=== PATIENT | male | born 1995 | race Caucasian/White ===

== ENCOUNTER → 2022-05-17 10:43 | Outpatient (CLI) | payer OTHER, SELFPAY ==
--- NOTE | ~2022-05-17 | XR_ITS ---
EXAMINATION: XR knee LT min 4V DATE: 05/17/2022 11:10 INDICATION: Left knee pain TECHNIQUE: Four views of the left knee were obtained. COMPARISON: None. FINDINGS: Alignment is normal. No fracture or osteochondral lesion. Joint spaces are normal with no e rosions. There is a small knee joint effusion. Soft tissues are unremarkable. IMPRESSION: 1. Small knee joint effusion without acute osseous abnormality. Reviewed, dictated and finalized at location L. 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
== END ==
PROVIDERS: PCP Family Medicine; Visit Provider Family Medicine
DX: M25.462 Effusion, left knee (principal); M25.562 Pain in left knee
CPT/HCPCS: 73564

== ENCOUNTER 2022-05-23 13:08 | Outpatient (RCR) | payer OTHER, SELFPAY ==
--- NOTE | 2022-05-23 14:43 | PTOPEVAL1 ---
Assessment and note entered by Mayelin Thompson, PT, DPT Evaluation Information Assessment Status Evaluation Diagnosis L knee Onset 3 weeks Subjective Information Pt states a couple of weeks ago when exercising his knee gave out. Now pt states just walking does not usually bother his knee to much. He states with increased knee flexion he gets a pain down the back of his knee, and when sitting for too long then going to stand he initial has to limp because of the pain and it feels like his leg does not want to move. He states d/t pain he struggles to bring his L leg up to put his shoes on. He reports pain with active motions as well as max extension , but a decrease in pain once in the new position. 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 He rates 0/10 pain at rest, and 4/10 at the worst. Reported Pain Level Pain Score 0: Self Report Assessment PT Clinical Summary Kenan Ureña presents to therapy today with a diagnosis of L knee pain. Today he reports very specific but very sporadic things that increase his pain. He demonstrates L knee ROM that is decreased compared to the RLE but still functional for his. During functional movement assessments he demonstrates increased medial and lateral instability bilaterally. He has 5/5 muscle strength with resisted flexion and extension. He was instructed today in a HEP to address knee instability and single leg strength. D/t not having any functional limitations at this time, it was recommended that he continue with his HEP and follow up with the clinic in about a month, or sooner if needed, to monitor his pain and progress . Will discharge if he is doing fine, will progress HEP and starts treatments if his pain increases. Plan of Care Interventions Neuro Re-education,Patient/Caregiver Educati, Therapeutic Activities,Therapeutic Exercise PT Services Indicated Yes Treatment Frequency and follow up in one month if needed Duration These treatments will address the objective and functional deficits as defined above. The patient will be advanced safely and appropriately in order for the patient to progress towards his/her prior level of function. Additional exercises will be introduced and as well as a comprehensive home exercise program upon discharge, if needed, ?to ensure carryover of functional gains achieved in the clinic. This treatment plan has been reviewed and agreement upon by the patient.
--- NOTE | 2022-08-12 08:35 | PTOPDC ---
Assessment and note entered by Mayelin Thompson, PT, DPT Evaluation Information Assessment Status Discharge - Pt Not Present Diagnosis L knee Onset 3 weeks Subjective Information Kenan was evaluated on 05/23/22 and was having very mild pain at the time. He was given an HEP and told to follow up with the clinic in a month if his pain did not get better. He has not called the clinic to follow at this point, he will be discharged from skilled therapy services at this time.
== END 2022-08-12 10:18 | disposition home or self-care (01) ==
LOC: ANHGOSHPT 13:08
PROVIDERS: PCP Family Medicine; Visit Provider Family Medicine
DX: M25.562 Pain in left knee (principal)
CPT/HCPCS: 97112; 97161; 97530

== ENCOUNTER 2022-05-26 09:49 | Outpatient (CLI) | payer OTHER, SELFPAY ==
[2022-05-26 18:57] LABS: Alanine Aminotransferase 46 U/L (6-50); Albumin Level 4.3 g/dL (3.5-5.1); Alkaline Phosphatase 64 U/L (38-126); Anion Gap 6 mmol/L (8-16); Aspartate Amino Transferase 40 U/L (17-59); Bilirubin,Total 0.6 mg/dL (0.2-1.3); Blood Urea Nitrogen 14 mg/dL (9-20); Carbon Dioxide 29 mmol/L (22-30); Chloride 101 mmol/L (98-107); Cholesterol 192 mg/dL (0-200); Estimated Glomerular Filt Rate > 60; Glucose 88 mg/dL (65-110); HDL Direct 39 mg/dL; Potassium 4.6 mmol/L (3.4-5.0); Sodium 136 mmol/L (137-145); Triglycerides 82 mg/dL (<150)
[2022-05-26 19:08] LABS: LDL Cholesterol Direct 107 mg/dL
[2022-05-26 19:43] LABS: Vitamin D 25 Hydroxy 18.7 ng/mL
[2022-05-26 20:05] LABS: Basophils Percent Auto 0.6 % (0.2-1.2); Eosinophils Absolute Auto 0.1 K/mm3 (0-0.3); Hematocrit 48.1 % (42.0-52.0); Hemoglobin 15.5 g/dL (14.0-18.0); Immature Granulocyte Absolute 0.02 K/mm3 (0.00-0.031); Immature Granulocyte Percent A 0.3 % (0-0.5); Lymphocytes Percent Auto 34.5 % (18.3-44.2); Mean Corpuscular HGB Conc 32.2 g/dl (32-36); Mean Corpuscular Hemoglobin 26.9 pg (26-34); Mean Corpuscular Volume 83.4 fl (80-100); Mean Platelet Volume 11.8 fl (7.4-10.4); Monocytes Absolute Auto 0.4 K/mm3 (0.1-0.6); Monocytes Percent Auto 6.1 % (2.6-8.5); Neutrophils Absolute Auto 3.8 K/mm3 (1.3-6.7); Neutrophils Percent Auto 57.5 % (45.5-73.1); Platelet Count Result 269 k/mm3 (150-375); Red Blood Count 5.77 M/mm3 (4.6-6.20); White Blood Count 6.7 K/mm3 (4.5-10.0)
== END 2022-05-26 09:50 | disposition home or self-care (01) ==
LOC: ANHGOSHLAB 09:50
PROVIDERS: PCP Family Medicine; Visit Provider Family Medicine
DX: Z00.00 Encounter for general adult medical examination without abnormal findings (principal); Z13.220 Encounter for screening for lipoid disorders; E66.01 Morbid (severe) obesity due to excess calories; Z13.29 Encounter for screening for other suspected endocrine disorder; E55.9 Vitamin D deficiency, unspecified
CPT/HCPCS: 36415; 80053; 80061; 82306; 84443; 85025

== ENCOUNTER 2023-04-10 13:28 | Inpatient (IN) | payer OTHER, SELFPAY ==
[2023-04-10] VITALS (10 sets, daily range): BP systolic 111–136; BP diastolic 42–79; PULSE 103–110; RESP 16–19; TEMP 37.3–37.8; O2SAT 96–100; BMI 42.2
--- NOTE | ~2023-04-10 | CT_ITS ---
EXAMINATION: CT pelvis w con DATE: 04/10/2023 15:33 INDICATION: Perineal abscess with scrotal swelling TECHNIQUE: Computed tomography (CT) of the pelvis was performed with 100 cc Omnipaque 350 intravenous contrast. The dose-length product was 1503.00 mGy-cm. COMPARISON: None FINDINGS: There is a small right perineal abscess measuring 3.8 x 4 x 1.5 cm containing gas and fluid . There is moderate surrounding phlegmonous change with scrotal wall edema and fluid. There is a poss ible small second abscess located inferiorly adjacent to the scrotum containing gas and fluid. Nonobstructive bowel pattern. No significant vascular abnormality. There is mild lymph node enlargeme nt in the inguinal region bilaterally, likely reactive. Bladder is unremarkable. No acute osseous abn ormality. IMPRESSION: 1. Multiple focal areas of loculated fluid and gas in the perineum, consistent with abscess, largest measuring 4 cm. Moderate surrounding phlegmonous change with fluid and edema extending to the scrotal wall. Reviewed, dictated and finalized at location A. 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 Multiple focal areas of loculated fluid and gas in the perineum, consistent with abscess, largest measuring 4 cm. Moderate surrounding phlegmonous change w ith fluid and edema extending to the scrotal wall.
[2023-04-10 15:00] LABS: Basophils Percent Auto 0.2 % (0.2-1.2); Eosinophils Percent Auto 0.1 % (0-4.4); Hematocrit 45.4 % (42.0-52.0); Hemoglobin 14.7 g/dL (14.0-18.0); Immature Granulocyte Absolute 0.09 K/mm3 (0.00-0.031); Immature Granulocyte Percent A 0.5 % (0-0.5); Lymphocytes Absolute Auto 1.23 K/mm3 (0.9-3.2); Lymphocytes Percent Auto 7.5 % (18.3-44.2); Mean Corpuscular HGB Conc 32.4 g/dl (32-36); Mean Corpuscular Hemoglobin 27.3 pg (26-34); Mean Corpuscular Volume 84.4 fl (80-100); Mean Platelet Volume 11.5 fl (7.4-10.4); Monocytes Percent Auto 5.9 % (2.6-8.5); Neutrophils Absolute Auto 14.2 K/mm3 (1.3-6.7); Neutrophils Percent Auto 85.8 % (45.5-73.1); Platelet Count Result 216 k/mm3 (150-375); Red Blood Count 5.38 M/mm3 (4.6-6.20); Red Cell Distribution Width 13.9 % (11.5-14.5); White Blood Count 16.5 K/mm3 (4.5-10.0)
[2023-04-10 15:14] LABS: Alanine Aminotransferase 24 U/L (6-50); Alkaline Phosphatase 69 U/L (38-126); Anion Gap 9 mmol/L (8-16); Aspartate Amino Transferase 22 U/L (17-59); Bilirubin,Total 0.8 mg/dL (0.2-1.3); Blood Urea Nitrogen 15 mg/dL (9-20); Calcium 9.4 mg/dL (8.4-10.2); Carbon Dioxide 24 mmol/L (22-30); Chloride 102 mmol/L (98-107); Estimated CRCL calculation 165 ml/min; Estimated Glomerular Filt Rate > 60; Glucose 111 mg/dL (65-110); Potassium 3.8 mmol/L (3.4-5.0); Sodium 135 mmol/L (137-145)
--- NOTE | 2023-04-10 15:42 | ED.GENADULT ---
HPI - General Adult General Chief complaint: Skin/Abscess/Foreign Body Stated complaint: boil on taint/scrotal swelling Time Seen by Provider: 04/10/23 14:32 History of Present Illness HPI narrative: Patient is a 28-year-old male who presents ER with concern for abscess of the perineum. Patient reports it began developing 2 days ago. He squeezed it yesterday and got some fluid out. He continues to have some drainage today. His right testicle/scrotum became swollen today any as some streaking into his inguinal crease. Subjective fevers and chills. No urinary symptoms. No abdominal pain. Diarrhea or vomiting. No history of diabetes. Related Data Home Medications Medication Instructions Recorded Confirmed No Home Medications 04/10/23 04/10/23 Allergies Allergy/AdvReac Type Severity Reaction Status Date / Time No Known Allergies Allergy Verified 04/10/23 19:41 Review of Systems Review of Systems: All systems reviewed & are unremarkable except as noted in HPI and below Constitutional: Constitutional: Reports chills, Denies fatigue and Reports fever(s) Cardiovascular: Cardiovascular: Reports no additional cardiovascular complaints Respiratory: Respiratory: Reports no additional respiratory complaints Gastrointestinal: Gastrointestinal: Reports no additional gastrointestinal complaints Genitourinary: Genitourinary: Denies dysuria, Denies penile discharge and Denies testicular pain Comments: Scrotal swelling Musculoskeletal: Musculoskeletal: Reports no additional musculoskeletal complaints Integumentary/Breasts: Skin/Breast: Denies pruritus, Reports erythema and Denies rash Comments: perineal abscess PMFSH Past Medical History Medical History Obesity, Class III, BMI 40-49.9 (morbid obesity) Surgical History Surgical History History of repair of pyloric stenosis (~03/1995) Family History Family History (Updated 04/10/23 @ 19:45 by Marco Martell RN) Grandparent Lung cancer Social History Social History Smoking status: Never smoker Alcohol intake: never Substance use: never Substance use type: does not use Do You Feel Safe in your Home?: Yes Lack of Transportation: No Lack of Food: Never True Current Housing: I Have Housing Concerned About Future Housing: No Difficulty Paying Gas/Electric Bills: No Difficulty Paying for Meds: No Currently Unemployed: No Education: High School Diploma/GED Difficulty w/ Childcare or Family Care: No Occupation/Education: occupation Spiritual care concerns: No Exam Narrative: GENERAL: Well-appearing, obese, and in no acute distress. HEAD: Normocephalic, atraumatic. ENT: Mucous membranes moist. CHEST: Clear to auscultation. No respiratory distress. HEART: Regular rate and rhythm. Normal peripheral pulses. ABDOMEN: Soft, nontender, nondistended. : Scrotal exam with abscess for the scrotum meets the perineum. Purulence expressed. There is swelling of the scrotum and erythema with lymphangitic streaking going into the inguinal crease. no overt testicular tenderness. no crepitus. EXTREMITIES: Normal range of motion. No edema. SKIN: Warm, dry, no rash. See exam. NEURO: Alert and oriented x3. PSYCH: Normal mood and affect. Course Course Emergency Course: Discussed case with Dr. Hayes including labs and imaging, he would like the patient started on Zosyn/ clindamycin/ metronidazole and admitted to the hospitalist service. After discussing the case with the hospitalist service they feel patient would be best served on the surgical service as there are no medical issues for them to manage. They would be happy to consult on any medical issues that may jerod. After contacting general surgery again they will take the patient primarily under
[2023-04-10] MEDS: PIPERACILLN/TAZ 3.375GM/NS50ML 3.375 GM/50 ML BAG IVPB (16:37)
[2023-04-10] MEDS: CLINDAMYCIN 900 MG/D5W 50 ML 900 MG/50 ML PIGGYBACK 50 MG IVPB (17:25)
[2023-04-10] MEDS: MORPHINE SULFATE (*CRX) 4 MG/ML INJ IV PUSH (18:25)
[2023-04-10] MEDS: ONDANSETRON INJ 4 MG/2 ML VIAL IV PUSH (18:25)
[2023-04-10] MEDS: metroNIDAZOLE 500 MG/ISO 100ML 500 MG/100 ML BAG 100 MG IVPB (18:30)
--- NOTE | 2023-04-10 19:30 | ADMGEN ---
This patient, Kenan Welch, was admitted to Medical Room 341-01. Patient/family oriented to hospital policies and general routines including ID bracelet, bed and alarms, visiting hours, pain management, procedures, bathroom and other care routines, personal items, smoking policy, room service/diet, and visiting hours. Information on how to activate the Rapid Response Team has been discussed. Patient/Family are encouraged to report perceived risks to care and to ask questions if they do not understand what they are told or what they should do.
--- NOTE | 2023-04-10 21:57 | PM.IMHP ---
H&P: HPI History of Present Illness Date/Time: 04/10/23 21:57 Chief Complaint: Perineal abscess Narrative: patient is a 28-year-old white male who is not a diabetic presented to the emergency room today with complaints worsening redness swelling and pain in the perineal region for the past 3 to 4 days. Over the past 24hours has gotten a lot worse and he started having some spontaneous drainage from the area. No fever in the emergency room. White blood cell count was elevated at 16,500. CT scan of the pelvis was performed showing complex fluid collection in the perineal area with swelling and phlegmonous changes extending up into the right base of the scrotum and right groin region. The largest fluid collection is about 4cm and it is below the levator muscles. He has no problems urinating. Review of Systems Review of Systems: The remainder of the review of systems to include constitutional, HEENT, cardiovascular, respiratory, GI, , integumentary, musculoskeletal, endocrine, immunologic, hematologic, psychiatric, and neurologic are all negative except for which is mentioned above in the HPI. [facility] Past Medical History Medical History Obesity, Class III, BMI 40-49.9 (morbid obesity) Surgical History Surgical History History of repair of pyloric stenosis (~03/1995) Family History Family History Grandparent Lung cancer Social History Social History Smoking status: Never smoker Alcohol intake: never Substance use: never Substance use type: does not use Do You Feel Safe in your Home?: Yes Lack of Transportation: No Lack of Food: Never True Current Housing: I Have Housing Concerned About Future Housing: No Difficulty Paying Gas/Electric Bills: No Difficulty Paying for Meds: No Currently Unemployed: No Education: High School Diploma/GED Difficulty w/ Childcare or Family Care: No Occupation/Education: occupation Spiritual care concerns: No Meds Home Medications and Allergies Home Medications Medication Instructions Recorded Confirmed Type No Home Medications 04/10/23 04/10/23 History Allergies Allergy/AdvReac Type Severity Reaction Status Date / Time No Known Allergies Allergy Verified 04/10/23 19:41 Vital Signs Vital Signs - 24 hr 04/10/23 13:37 04/10/23 14:31 04/10/23 14:48 Temperature 37.8 C H Pulse Rate 110 H 106 H 108 H Respiratory Rate 16 19 18 Blood Pressure 135/75 136/72 129/76 Pulse Oximetry 97 100 100 04/10/23 15:42 04/10/23 17:27 04/10/23 16:31 Temperature Pulse Rate 103 H 106 H 105 H Respiratory Rate 18 18 18 Blood Pressure 131/79 125/66 130/78 Pulse Oximetry 100 100 98 04/10/23 18:11 04/10/23 18:31 04/10/23 18:55 Temperature Pulse Rate 106 H 106 H 109 H Respiratory Rate 17 17 17 Blood Pressure 120/74 124/72 121/68 Pulse Oximetry 97 97 98 Exam Const: General: comfortable and no acute distress Eyes: General: appearance normal, both eyes and all related structures Sclera: sclerae normal Pupils: Equal, round and reactive pupils present EOM: EOMs intact bilaterally Neck: Neck: supple and no JVD Resp: Effort & Inspection: normal respiratory effort Auscultation: clear to auscultation bilaterally Cardio: Rate: regular rate Rhythm: regular rhythm GI: GI Palp: Yes Soft to palpation, No Firmness to palpation present (GI), No Tenderness to palpation present (GI), No Guarding due to palpation present (GI) and No Hernia present : Other: Bilateral descended testes without masses. Abscess at the perineal body with about a 2cm area of fluctuance. Minimal purulent drainage at this time. There is extension of erythema swelling tender to the right scrotal base into the right groin region. No fluctuant a
[2023-04-11] VITALS (12 sets, daily range): BP systolic 112–139; BP diastolic 59–74; PULSE 81–102; RESP 12–20; TEMP 36.1–37.1; O2SAT 92–99
[2023-04-11] MEDS: CLINDAMYCIN 900 MG/D5W 50 ML 900 MG/50 ML PIGGYBACK 50 MG IVPB ×3 (01:24→17:22)
[2023-04-11] MEDS: SODIUM CHLORIDE 0.9% IV 1,000 ML 125 ML IV CONT (01:24)
[2023-04-11] MEDS: metroNIDAZOLE 500 MG/ISO 100ML 500 MG/100 ML BAG 100 MG IVPB ×4 (01:25→18:27)
[2023-04-11] MEDS: PIPERACILLN/TAZ 3.375GM/NS50ML 3.375 GM/50 ML BAG IVPB ×4 (05:46→20:37)
--- NOTE | 2023-04-11 07:26 | WPDHPUPDATE1 ---
History and Physical Update Update Date/Time: 04/11/23 07:26 History and Physical has been reviewed, including an updated exam of the patient. There are NO changes in the patient's condition. Risks, benefits, and alternatives have been discussed and questions answered. Patient agrees to proceed with procedure.
--- NOTE | 2023-04-11 07:28 | PC.NURSE ---
pt to surgery via stretcher, signed consent sent with pt
[2023-04-11] MEDS: LACTATED RINGERS 1,000 ML 30 ML IV CONT ×2 (07:30→08:48)
--- NOTE | 2023-04-11 07:30 | WPDANESEPPF ---
Anes - Initial Pre Proc Eval Procedure: Operation Date: 04/11/23 07:30 Proposed Procedures p Incision and Debridement Perineal Abscess - Raoul Hayes MD Date/Time: 04/11/23 07:30 Surgeon: Raoul Hayes MD Pre Op Diagnosis: Perineal Abscess Patient Data Age: 28 Gender: M Height: 1.78 m Weight: 133.4 kg Last Vital Signs Temp 36.8 C 04/11/23 06:00 Pulse 91 04/11/23 06:00 Resp 18 04/11/23 06:00 BP 130/74 04/11/23 06:00 Pulse Ox 96 04/11/23 06:00 O2 Del Method Room Air 04/10/23 20:00 Allergies Allergy/AdvReac Type Severity Reaction Status Date / Time No Known Allergies Allergy Verified 04/10/23 19:41 Home Medications Medication Instructions Recorded Confirmed Type No Home Medications 04/10/23 04/10/23 History Laboratory Tests 04/10/23 14:52 WBC 16.5 H K/mm3 (4.5-10.0) RBC 5.38 M/mm3 (4.6-6.20) Hgb 14.7 g/dL (14.0-18.0) Hct 45.4 % (42.0-52.0) MCV 84.4 fl (80-100) MCH 27.3 pg (26-34) MCHC 32.4 g/dl (32-36) RDW 13.9 % (11.5-14.5) Plt Count 216 k/mm3 (150-375) MPV 11.5 H fl (7.4-10.4) Immature Gran % (Auto) 0.5 % (0-0.5) Neut % (Auto) 85.8 H % (45.5-73.1) Lymph % (Auto) 7.5 L % (18.3-44.2) [place] % (Auto) 5.9 % (2.6-8.5) Eos % (Auto) 0.1 % (0-4.4) Baso % (Auto) 0.2 % (0.2-1.2) Lymph # (Auto) 1.23 K/mm3 (0.9-3.2) [place] # (Auto) 1.0 H K/mm3 (0.1-0.6) Eos # (Auto) 0.0 K/mm3 (0-0.3) Baso # (Auto) 0.0 K/mm3 (0.0-0.1) Abs Immat Gran (auto) 0.09 H K/mm3 (0.00-0.031) Absolute Neuts (auto) 14.2 H K/mm3 (1.3-6.7) Absolute Nucleated RBC 0.0 K/mm3 (0.0-0.012) Nucleated RBC % 0.0 % (0.0-0.2) Sodium 135 L mmol/L (137-145) Potassium 3.8 mmol/L (3.4-5.0) Chloride 102 mmol/L (98-107) Carbon Dioxide 24 mmol/L (22-30) Anion Gap 9 mmol/L (8-16) BUN 15 mg/dL (9-20) Creatinine 0.80 mg/dL (0.7-1.3) Estim Creat Clear Calc 165 ml/min Estimated GFR > 60 (59 - ) Glucose 111 H mg/dL (65-110) Lactic Acid 1.0 mmol/L (0.7-2.0) Calcium 9.4 mg/dL (8.4-10.2) Total Bilirubin 0.8 mg/dL (0.2-1.3) AST 22 U/L (17-59) ALT 24 U/L (6-50) Alkaline Phosphatase 69 U/L (38-126) Total Protein 8.0 g/dL (6.3-8.2) Albumin 4.0 g/dL (3.5-5.1) Patient hx anesthesia problems: none Family hx anesthesia problems: none Results Review: All pre-operative results and documents have been reviewed as part of the pre-operative evaluation. [facility] Past Medical History Medical History Obesity, Class III, BMI 40-49.9 (morbid obesity) Surgical History Surgical History History of repair of pyloric stenosis (~03/1995) Family History Family History Grandparent Lung cancer Social History Social History Smoking status: Never smoker Alcohol intake: never Substance use: never Substance use type: does not use Do You Feel Safe in your Home?: Yes Lack of Transportation: No Lack of Food: Never True Current Housing: I Have Housing Concerned About Future Housing: No Difficulty Paying Gas/Electric Bills: No Difficulty Paying for Meds: No Currently Unemployed: No Education: High School Diploma/GED Difficulty w/ Childcare or Family Care: No Occupation/Education: occupation Spiritual care concerns: No Anes - Eval Final PreProcedure Day of Procedure 04/11/23 07:30 Patient weight: morbidly obese Heart: regular rate and rhythm Lungs: clear to auscultation Airway: Mallampati scale class II Neurological: alert and oriented Last oral intake: >/= 8 hours ASA classification: III Emergent: no Anesthetic plan: proceed Anesthesia type and monit
--- NOTE | 2023-04-11 07:31 | WPDHPUPDATE1 ---
History and Physical Update Update Date/Time: 04/11/23 07:31 History and Physical has been reviewed, including an updated exam of the patient. There are NO changes in the patient's condition. Risks, benefits, and alternatives have been discussed and questions answered. Patient agrees to proceed with procedure.
[2023-04-11 07:41] LABS: Basophils Percent Auto 0.3 % (0.2-1.2); Eosinophils Percent Auto 0.2 % (0-4.4); Hematocrit 42.1 % (42.0-52.0); Hemoglobin 13.4 g/dL (14.0-18.0); Immature Granulocyte Absolute 0.08 K/mm3 (0.00-0.031); Immature Granulocyte Percent A 0.6 % (0-0.5); Lymphocytes Absolute Auto 1.68 K/mm3 (0.9-3.2); Lymphocytes Percent Auto 11.9 % (18.3-44.2); Mean Corpuscular HGB Conc 31.8 g/dl (32-36); Mean Corpuscular Hemoglobin 27.5 pg (26-34); Mean Corpuscular Volume 86.3 fl (80-100); Mean Platelet Volume 11.9 fl (7.4-10.4); Neutrophils Absolute Auto 11.3 K/mm3 (1.3-6.7); Platelet Count Result 193 k/mm3 (150-375); Red Blood Count 4.88 M/mm3 (4.6-6.20); Red Cell Distribution Width 13.9 % (11.5-14.5); White Blood Count 14.2 K/mm3 (4.5-10.0)
[2023-04-11 07:51] LABS: Anion Gap 7 mmol/L (8-16); Blood Urea Nitrogen 11 mg/dL (9-20); Carbon Dioxide 28 mmol/L (22-30); Chloride 99 mmol/L (98-107); Estimated CRCL calculation 147 ml/min; Estimated Glomerular Filt Rate > 60; Glucose 97 mg/dL (65-110); Potassium 4.1 mmol/L (3.4-5.0); Sodium 134 mmol/L (137-145)
[2023-04-11] MEDS: KETOROLAC 30 MG/ML VIAL (*BKC) IV PUSH (08:25)
[2023-04-11] MEDS: LIDO 1%/EPINEPHRINE 1:100,000 20 ML VIAL INFILTRATE (08:27)
--- NOTE | 2023-04-11 08:42 | P.OP_ITS ---
Procedure Note - Detailed Date of Procedure 04/11/23 Pre-op Diagnosis Perineal Abscess Post-op Diagnosis Same (Complex perineal abscess) Procedure Performed Complex incision and drainage of perineal abscess Surgeon Raoul Hayes MD Founder And Chief Technical Officer Janine Patiño SHARK BIOLOGIST Anesthesia General Indications Patient is a 28-year-old white male presented with a 2 to 3 day history of worsening pain and redness in the right perineal region. He was seen emergency room had elevated white blood cell count and a CT scan and pelvis showed he had a perineal abscess with extension of phlegmonous changes into the right megan scrotal region and the right groin region. Presents now for emergent incision and drainage of the abscess. Findings Patient about a 4cm abscess in the perineum just to the right of the perineal body. It extended to the base of the right side of the scrotum and up towards the right groin region. Inferiorly also some extended across the midline perineum for about 4cm. No necrotic tissue was noted. Description of Procedure After informed consent was obtained patient brought to the operating room was placed in the lithotomy position and high cane stirrups on operating table. He was then placed under general LMA anesthesia. The scrotum and perineum and perianal region was then prepped and draped usual sterile fashion. A time-out was then performed correctly identifying the patient as well as procedure to be performed. I 1st started by making a longitudinal incision in the area of maximal fluctuance in the perineum. This done with a 15 blade scalpel. I extended incision to the a with about 2cm and then about 20cc of pus drained out the abscess cavity. Contained a culture stick for Gram stain and aerobic and anaerobic cultures. I then placed my finger into the abscess cavity to break any loculations and to find where was tracking. The abscess tracked to the base of the right scrotum but not into the scrotum. The tract along the right groin region for for about 8cm from the original incision. Inferiorly the tract across the midline 5cm. I then made 2 counter incisions scalpel at the end of these tracts. Then dilated the tract with a Shalonda clamp and then irrigated out the tract with sterile saline solution. I then further drain the area by placing 3/4inch John drains through the initial incision through the 2 counter incisions. The drains were then tied to themselves a loop configuration 3-0 nylon sutures. I then irrigated out the abscess cavity a sterile saline solution and then packed the abscess cavity tightly with half-inch iodoform g auze. Five yd of gauze was used for packing. 1% lidocaine mixed with 0.5% Marcaine with some epinephrine was then injected around the incisions for pain relief postoperatively. There is then cleaned and then 4x4 gauze ABD pads and disposable underwear was used for final dressing. The patient tolerated the procedure well no complications. All sponges, needles, and instrument counts were correct at the end procedure. EBL was _25__cc. The patient was awakened and taken to recovery in stable and satisfactory condition. Implants None Estimated Blood Loss 25 Drains Yes (3/4inch [place] drains x2) Packing Yes (5 yd of half-inch iodoform gauze packed in the abscess cavity. Cavity.) Pathology Other (Culture sticks sent to microbiology for Gram stain and aerobic and anaerobic organisms.) Complications No immediate complications Condition Stable Disposition PACU [facility] Billing Surgery - Charge Forward: Surgery Billing
[2023-04-11] MEDS: fentaNYL CITRATE INJ (*CRX) 100 MCG/2 ML VIAL 25 MCG IV PUSH ×2 (08:55→08:59)
[2023-04-11 09:21] LABS: Hemoglobin A1C 5.1 % (<5.7)
--- NOTE | 2023-04-11 09:55 | PC.NURSE ---
pt returned from surgery, family at bedside, report of pain is zero at rest, 3 with movement
[2023-04-11] MEDS: SODIUM CHLORIDE 0.9% IV 1,000 ML 75 ML IV CONT (20:36)
[2023-04-12 00:45] VITALS: BP 109/57; PULSE 85; RESP 18; TEMP 36.6; O2SAT 96
[2023-04-12] MEDS: metroNIDAZOLE 500 MG/ISO 100ML 500 MG/100 ML BAG 100 MG IVPB ×4 (01:29→17:11)
[2023-04-12] MEDS: CLINDAMYCIN 900 MG/D5W 50 ML 900 MG/50 ML PIGGYBACK 50 MG IVPB ×3 (01:29→16:30)
[2023-04-12] MEDS: SODIUM CHLORIDE 0.9% IV 1,000 ML 75 ML IV CONT ×2 (01:29→12:21)
[2023-04-12] MEDS: PIPERACILLN/TAZ 3.375GM/NS50ML 3.375 GM/50 ML BAG IVPB ×4 (04:26→20:47)
[2023-04-12 06:00] VITALS: BP 119/76; PULSE 76; RESP 20; TEMP 36.6; O2SAT 98
--- NOTE | 2023-04-12 07:48 | P.PNAN_ITS ---
Anes - Prog Note Post-Op Date/Time: 04/12/23 07:48 Cardiovascular status: normal Respiratory status: normal Airway patency: baseline Mental status: baseline Post-Op hydration status: normal Vital Signs: Last Vital Signs Temp 36.6 C 04/12/23 06:00 Pulse 76 04/12/23 06:00 Resp 20 04/12/23 06:00 BP 119/76 04/12/23 06:00 Pulse Ox 98 04/12/23 06:00 O2 Del Method Room Air 04/11/23 20:00 O2 Flow Rate 8 04/11/23 08:40 Pain Score (VAS): 0/10 I/O: Intake & Output 04/11/23 04/11/23 04/12/23 15:59 23:59 07:59 Intake Total 1939 1590 1650 Balance 1939 1590 1650 Laboratory Tests 04/11/23 07:05 04/11/23 07:05 04/11/23 07:05 WBC 14.2 H RBC 4.88 Hgb 13.4 L Hct 42.1 MCV 86.3 MCH 27.5 MCHC 31.8 L RDW 13.9 Plt Count 193 MPV 11.9 H Immature Gran % (Auto) 0.6 H Neut % (Auto) 80.0 H Lymph % (Auto) 11.9 L [place] % (Auto) 7.0 Eos % (Auto) 0.2 Baso % (Auto) 0.3 Lymph # (Auto) 1.68 [place] # (Auto) 1.0 H Eos # (Auto) 0.0 Baso # (Auto) 0.0 Abs Immat Gran (auto) 0.08 H Absolute Neuts (auto) 11.3 H Absolute Nucleated RBC 0.0 Nucleated RBC % 0.0 Sodium 134 L Potassium 4.1 Chloride 99 Carbon Dioxide 28 Anion Gap 7 L BUN 11 Creatinine 0.90 Estim Creat Clear Calc 147 Estimated GFR > 60 Glucose 97 Hemoglobin A1c 5.1 Calcium 9.0 Microbiology 04/10/23 14:52 Blood Blood Culture - Preliminary 04/10/23 15:23 Blood Blood Culture - Preliminary Post-procedural complaints: none Patient Feedback: Patient satisfied with anesthetic care.
--- NOTE | 2023-04-12 16:26 | PM.PNGS ---
Progress Note: A&P Assessment and Plan (1) Abscess of perineum: Code(s): L02.215 - Cutaneous abscess of perineum Status: Acute Assessment and Plan: cont local wound care, IV abx, await cx Subjective Subjective Date/Time Seen: 04/12/23 16:26 Interval history: feels better, c/o incisional soreness maurilio c movt Review of Systems Review of Systems: All systems reviewed & are unremarkable except as noted in HPI and below Exam Const: General: cooperative, comfortable and no acute distress GI: Inspection: normal to inspection : Other: perineal wound - unpacked, penroses in place, decreased induration Objective Data Vital Signs Vital Signs: Vital Signs - 24 hr 04/11/23 20:00 04/11/23 21:56 04/12/23 00:45 Temperature 37.1 C 36.6 C Pulse Rate 102 H 85 Respiratory Rate 20 18 Blood Pressure 117/68 109/57 L Pulse Oximetry 99 96 Oxygen Delivery Room Air 04/12/23 06:00 04/12/23 08:00 Temperature 36.6 C Pulse Rate 76 Respiratory Rate 20 Blood Pressure 119/76 Pulse Oximetry 98 Oxygen Delivery Room Air Intake/Output Intake/Output: Intake & Output 04/09/23 04/10/23 04/11/23 04/12/23 23:59 23:59 23:59 23:59 Intake Total 100 3830 3670 Balance 100 3830 3670 Meds/Results Medications: Active Medications Generic Name Dose Route Start Last Admin Trade Name Freq PRN Reason Stop Dose Admin Acetaminophen 650 mg 04/10/23 17:16 Acetaminophen 325 Mg Tablet PO Q4H PRN Mild Pain (1-3) or Fever Hydrocodone Bitart/Acetaminophen 1 tab 04/10/23 17:16 Hydrocodone/Acetaminophen (*Crx) 5-325 Mg Tablet PO Q4H PRN Pain Rated 4-6 Piperacillin/Tazobactam/Dextrose 3.375 gm in 50 mls @ 100 mls/hr 04/10/23 21:00 04/12/23 15:20 Zosyn 3.375 Gm/Ns 50 Ml IVPB Infused Q6H SUREKHA Infusion Metronidazole 500 mg in 100 mls @ 100 mls/hr 04/11/23 00:00 04/12/23 12:19 Flagyl 500 Mg/Iso Soln 100 Ml IVPB 100 mls/hr Q6H SUREKHA Administration Clindamycin Phosphate 900 mg in 50 mls @ 50 mls/hr 04/11/23 01:00 04/12/23 08:24 Cleocin 900 Mg/D5w 50 Ml IVPB 50 mls/hr Q8H SUREKHA Administration Sodium Chloride 1,000 mls @ 75 mls/hr 04/10/23 17:20 04/12/23 13:24 Normal Saline Iv IV CONT Not Given .[id number] [facility] Morphine Sulfate 4 mg 04/11/23 08:38 Morphine Sulfate (*Crx) 4 Mg/Ml Inj IV PUSH Q4H PRN Pain Rated 7-10 Ondansetron HCl 4 mg 04/10/23 17:16 04/10/23 18:25 Ondansetron Inj 4 Mg/2 Ml Vial IV PUSH 4 mg Q4H PRN Administration Nausea Oxycodone HCl 5 mg 04/11/23 08:38 Oxycodone Hcl (*Crx) 5 Mg Tab Ir PO Q4H PRN Pain Rated 7-10 Saccharomyces Boulardii 250 mg 04/12/23 17:00 Saccharomyces Boulardii 250 Mg Capsule PO BID [facility] Radiology Results: ITS Impressions Pelvis CT 04/10/23 15:38 IMPRESSION: 1. Multiple focal areas of loculated fluid and gas in the perineum, consistent with abscess, largest measuring 4 cm. Moderate surrounding phlegmonous change with fluid and edema extending to the scrotal wall.
[2023-04-12] MEDS: MORPHINE SULFATE (*CRX) 4 MG/ML INJ IV PUSH (16:27)
[2023-04-12] MEDS: SACCHAROMYCES BOULARDII 250 MG CAPSULE PO (16:36)
[2023-04-12 22:17] VITALS: BP 143/67; PULSE 77; RESP 20; TEMP 36.9; O2SAT 98
[2023-04-13] MEDS: CLINDAMYCIN 900 MG/D5W 50 ML 900 MG/50 ML PIGGYBACK 50 MG IVPB ×2 (00:40→08:24)
[2023-04-13] MEDS: metroNIDAZOLE 500 MG/ISO 100ML 500 MG/100 ML BAG 100 MG IVPB ×2 (00:40→06:20)
[2023-04-13] MEDS: PIPERACILLN/TAZ 3.375GM/NS50ML 3.375 GM/50 ML BAG IVPB ×2 (03:20→08:21)
[2023-04-13 05:54] LABS: Hematocrit 37.8 % (42.0-52.0); Hemoglobin 12.2 g/dL (14.0-18.0); Mean Corpuscular HGB Conc 32.3 g/dl (32-36); Mean Corpuscular Hemoglobin 27.5 pg (26-34); Mean Corpuscular Volume 85.1 fl (80-100); Mean Platelet Volume 11.4 fl (7.4-10.4); Platelet Count Result 238 k/mm3 (150-375); Red Blood Count 4.44 M/mm3 (4.6-6.20); Red Cell Distribution Width 13.8 % (11.5-14.5); White Blood Count 6.9 K/mm3 (4.5-10.0)
[2023-04-13 06:00] VITALS: BP 108/58; PULSE 72; RESP 20; TEMP 36.8; O2SAT 98
[2023-04-13] MEDS: SODIUM CHLORIDE 0.9% IV 1,000 ML 75 ML IV CONT (06:20)
[2023-04-13] MEDS: SACCHAROMYCES BOULARDII 250 MG CAPSULE PO (08:21)
--- NOTE | 2023-04-13 10:29 | PM.DS ---
DS: Admitting Diagnosis Discharge Date 04/13/23 Admitting Diagnosis Perineal abscess DS: Discharge Diagnosis Discharge Diagnosis (1) Abscess of perineum: Code(s): L02.215 - Cutaneous abscess of perineum Status: Acute Assessment and Plan: 05/12/22 Complex incision and drainage of perineal abscess by Dr. Hayes DS: Summary Hospital Course Reason for hospitalization: This is a 28-year-old obese male who is not a diabetic. He presented to the emergency room with complaints of redness, swelling, and pain in the perineal region for 3 to 4 days.?Workup in the ER showed leukocytosis and CT evidence of a complex fluid collection in the perineal area with swelling and phlegmonous changes extending up into the right base of the scrotum and right groin region with the largest fluid collection measuring about 4cm. He was admitted for surgical evaluation and IV antibiotics Hospital Course: The patient was admitted on 04/11/23 and taken to the OR the same day. He had a complex I&D of perineal abscess with fernando drain placement. He was on broad spectrum IV antibiotics with Clindamycin, Zosyn, and metronidazole. Cultures were obtained during surgery and have no growth of any organisms to date after 48 hours. The patient's pain and induration has continued to improve. He is not requiring any narcotic pain medications. He is tolerating activity and tolerating a diet. Packing was removed postop day 1. He was started on sitz baths and gauze dressing changes today. Discussed the case with Dr. Gomez who recommends he is stable for discharge today and will transition to oral antibiotics. Plan to follow-up with Dr. Hayes in 1 week. Status at Discharge Functional status at discharge: independent ambulation Overall status at discharge: patient is progressing back to baseline Time Spent with Patient Time attestation: Total time spent providing and/or coordinating discharge services: Time spent: Less than 30 minutes Exam Narrative: Perineal gauze dressing removed with moderate amount of serous drainage. No purulent drainage. [place] drains in place with induration extending up to the right of the scrotum towards the right groin where he has counter incisions with the fernando drains. Induration and tenderness improving. Const: General: comfortable and no acute distress Nutritional Appearance: obese Orientation/consciousness: patient oriented x3 DS: Data Data Completed and Pending Pending studies at discharge: Preliminary micro results at discharge 04/11/23 08:14 Anaerobic Culture - Preliminary Abscess Aerobic Culture - Preliminary 04/10/23 14:52 Blood Culture - Preliminary Blood 04/10/23 15:23 Blood Culture - Preliminary Blood Labs on day of discharge: Labs from last 24 hours 04/13/23 05:17 WBC 6.9 RBC 4.44 L Hgb 12.2 L Hct 37.8 L MCV 85.1 MCH 27.5 MCHC 32.3 RDW 13.8 Plt Count 238 MPV 11.4 H Preliminary micro results at discharge 04/11/23 08:14 Anaerobic Culture - Preliminary Abscess Aerobic Culture - Preliminary 04/10/23 14:52 Blood Culture - Preliminary Blood 04/10/23 15:23 Blood Culture - Preliminary Blood Procedures/Treatments: Procedures Operation Date: 04/11/23 07:30 Actual Procedure Side Surgeon p Complex Incision and Debridement Perineal Abscess Not Applicable Raoul Hayes MD Imaging Radiologist's impression: ITS Impressions Pelvis CT 04/10/23 15:38 IMPRESSION: 1. Multiple focal areas of loculated fluid and gas in the perineum, consistent with abscess, largest measuring 4 cm. Moderate surrounding phlegmonous change with fluid and edema extending to the scrotal wall. Discharge Plan Discharge Attending physician on discharge: Pearl Gomez Discharging Clinician: Allyssa Martinez Anticipated Discharge Date/Time: 04/13/23 10:48 Patient Disposition: Home, Self-Care Activity: august shower Diet: regular Wound Care Instruc
== END 2023-04-13 13:30 | disposition home or self-care (01) | DRG 603 ==
LOC: ANHED 17:16 → ANH3MED 18:42
PROVIDERS: Surgery; Admitting Provider Surgery; Emergency Provider Emergency Medicine; PCP Family Medicine; Visit Provider Nurse Practitioner Family
PROC: 0J9B3ZX Drainage of Perineum Subcutaneous Tissue and Fascia, Percutaneous Approach, Diagnostic (ICD-10-PCS; CPT 46040; principal; 2023-04-11 07:30)
DX: L02.215 Cutaneous abscess of perineum (principal); Z68.41 Body mass index [BMI] 40.0-44.9, adult; E66.01 Morbid (severe) obesity due to excess calories; Z28.21 Immunization not carried out because of patient refusal
CPT/HCPCS: 36415; 72193; 80048; 80053; 83036; 83605; 85025; 85027; 87040; 87070; 87075; 87076; 87185; 87205; 96365; 96367; 96375; 99285; A9270; G0378; J1170; J1836; J1885; J2250; J2270; J2405; J2543; J2704; J3010; J7030; J7120; Q9967

== ENCOUNTER 2023-05-23 10:14 | Outpatient (CLI) | payer OTHER, SELFPAY ==
[2023-05-23 11:48] LABS: Basophils Absolute Auto 0.1 K/mm3 (0.0-0.1); Basophils Percent Auto 0.8 % (0.2-1.2); Eosinophils Percent Auto 0.6 % (0-4.4); Hematocrit 45.2 % (42.0-52.0); Hemoglobin 14.5 g/dL (14.0-18.0); Immature Granulocyte Absolute 0.02 K/mm3 (0.00-0.031); Immature Granulocyte Percent A 0.3 % (0-0.5); Mean Corpuscular HGB Conc 32.1 g/dl (32-36); Mean Corpuscular Hemoglobin 27.4 pg (26-34); Mean Corpuscular Volume 85.3 fl (80-100); Mean Platelet Volume 11.2 fl (7.4-10.4); Monocytes Absolute Auto 0.4 K/mm3 (0.1-0.6); Monocytes Percent Auto 6.3 % (2.6-8.5); Neutrophils Absolute Auto 3.4 K/mm3 (1.3-6.7); Platelet Count Result 250 k/mm3 (150-375); Red Cell Distribution Width 14.1 % (11.5-14.5); White Blood Count 6.2 K/mm3 (4.5-10.0)
[2023-05-23 12:06] LABS: Alanine Aminotransferase 25 U/L (6-50); Albumin Level 3.9 g/dL (3.5-5.1); Alkaline Phosphatase 59 U/L (38-126); Anion Gap 4 mmol/L (8-16); Aspartate Amino Transferase 46 U/L (17-59); Bilirubin,Total 0.5 mg/dL (0.2-1.3); Blood Urea Nitrogen 20 mg/dL (9-20); Calcium 9.1 mg/dL (8.4-10.2); Carbon Dioxide 27 mmol/L (22-30); Chloride 105 mmol/L (98-107); Cholesterol 194 mg/dL (0-200); Estimated Glomerular Filt Rate > 60; Glucose 91 mg/dL (65-110); HDL Direct 54 mg/dL; Potassium 4.1 mmol/L (3.4-5.0); Sodium 136 mmol/L (137-145); Triglycerides 50 mg/dL (<150)
[2023-05-23 12:25] LABS: LDL Cholesterol Direct 113 mg/dL
[2023-05-23 12:35] LABS: Vitamin D 25 Hydroxy 25.3 ng/mL
== END 2023-05-23 10:15 | disposition home or self-care (01) ==
LOC: ANHGOSHLAB 10:16
PROVIDERS: PCP Family Medicine; Visit Provider Family Medicine
DX: Z00.00 Encounter for general adult medical examination without abnormal findings (principal); E78.5 Hyperlipidemia, unspecified; E66.01 Morbid (severe) obesity due to excess calories; E53.8 Deficiency of other specified B group vitamins; E55.9 Vitamin D deficiency, unspecified; Z13.29 Encounter for screening for other suspected endocrine disorder
CPT/HCPCS: 36415; 80053; 80061; 82306; 82607; 84443; 85025

== ENCOUNTER 2023-05-29 08:41 | Outpatient (CLI) | payer OTHER, SELFPAY ==
--- NOTE | 2023-06-01 16:55 | WPDHOMESLEEP ---
Sleep Study - Home Unattended Date of Study: 05/29/23 Ordering Provider: Laura Martínez MD Interpreting Provider: Sandra Carey MD Home Sleep Study Type: Watch PAT Height: 1.78 m Weight: 135.624 kg Body Mass Index: 42.9 Neck Circumference (inches): 17 Critz: 2 Reason for Sleep Study Hypersomnolence Sleep History Kenan Welch is a 28-year-old man with excessive daytime sleepiness. Others report that he has loud snoring and witnessed apneas. He frequently snores loudly enough that others complain. He occasionally has trouble sleeping when he has a cold. He rarely wakes up gasping for breath during the night. He rarely has breathing problems at night observed by others. He rarely sweats excessively at night. He rarely notices his heart pounding or beating irregularly during the night. He rarely falls asleep during the day. He occasionally falls asleep involuntarily, never falls asleep while driving. He never experiences loss of muscle tone with strong emotion. He rarely has daytime difficulty at work due to excessive sleepiness. He never feels paralyzed on waking or falling asleep. He never experiences vivid dreams upon waking or falling asleep. He never feels afraid of going to sleep. He rarely has nightmares. He occasionally recalls his dreams. He occasionally has thoughts racing through his mind. He rarely feels sad or depressed. He occasionally feels anxiety. He occasionally notices parts of his body jerk. He never kicks during the night. He occasionally feels crawling or aching feelings in his legs. He occasionally feels leg pain at night. He occasionally has morning jaw pain. Normal bedtime is 9:30 p.m., falling asleep within 15-30 minutes, waking between 0 and 1 time at night, staying awake for up to 3 minutes, just long enough for him to go to the bathroom and return to sleep. Wake time is 5:30 a.m.. He typically gets between 7 and 9 hours of sleep at night hours of sleep per night. on weekends, bedtime is later, 11:00 p.m. and his wake time is later, 7:00 a.m.. Habits:??Tobacco: Never smoker Alcohol: none Recreational substances: none PMFSH Past Medical History Medical History Abscess of perineum (~03/2023) Obesity, Class III, BMI 40-49.9 (morbid obesity) Vitamin D deficiency Surgical History Surgical History History of incision and drainage (~03/2023) Perineal abscess 04/11/23 History of repair of pyloric stenosis (~03/1995) Family History Family History Grandparent Lung cancer Social History Social History Smoking status: Never smoker Alcohol intake: never Substance use: never Substance use type: does not use Do You Feel Safe in your Home?: Yes Lack of Transportation: No Lack of Food: Never True Current Housing: I Have Housing Concerned About Future Housing: No Difficulty Paying Gas/Electric Bills: No Difficulty Paying for Meds: No Currently Unemployed: No Education: High School Diploma/GED Difficulty w/ Childcare or Family Care: No Occupation/Education: occupation Spiritual care concerns: No Medications Home Medications Medication Instructions Recorded Confirmed Type cholecalciferol (vitamin D3) 1,250 1,250 mcg PO WEEKLY #12 tabs 05/23/23 05/23/23 Rx mcg (50,000 unit) tablet Sleep Procedure The sleep study was completed using GenlotPAT a technically adequate device with seven channels: peripheral arterial tone, actigraphy, body position, snore, respiratory movement, pulse oximetry, sleep staging, and heart rate. Prior to using the device, the patient received verbal and written instructions for its application and was provided with the help desk phone number for additional telephonic instruction with 24-h
[2023-06-04 14:39] VITALS: BMI 42.9
== END 2023-05-30 09:48 | disposition home or self-care (01) ==
LOC: ANHCSM 08:42
PROVIDERS: PCP Family Medicine; Visit Provider Family Medicine
DX: R40.0 Somnolence (principal)
CPT/HCPCS: 95800

== ENCOUNTER 2023-06-07 08:46 | Outpatient (CLI) | payer OTHER, SELFPAY ==
--- NOTE | 2023-07-03 20:49 | WPDSLEEPSTUD ---
Sleep Study Date of Study: 06/07/23 Ordering Provider: Laura Martínez MD Interpreting Physician: Sandra Carey MD Sleep Study Type: CPAP Titration Height: 1.78 m Weight: 135.624 kg Body Mass Index: 42.9 Neck Circumference (inches): 17 Ora: 2 Reason for Sleep Study 05/29/2023 Home sleep test using WatchPat shows severe obstructive sleep apnea, AHI 30.9, central apnea hypopnea index is 9.8, all events worse during REM, REM AHI 58.6, central REM AHI 20.1, desaturation to 64% and loud snoring.? He returns for CPAP titration. Elevated central apneas may occur in the setting of congestive heart failure, strokes, alcohol and opioid use, and may also occur independently of underlying disease processes. * 06/14/2023 echo : ?EF normal, estimated at 60-65%. Sleep History Kenan Welch is a 28-year-old man with excessive daytime sleepiness. Others report that he has loud snoring and witnessed apneas. He frequently snores loudly enough that others complain. He occasionally has trouble sleeping when he has a cold. He rarely wakes up gasping for breath during the night. He rarely has breathing problems at night observed by others. He rarely sweats excessively at night. He rarely notices his heart pounding or beating irregularly during the night. He rarely falls asleep during the day. He occasionally falls asleep involuntarily, never falls asleep while driving. He never experiences loss of muscle tone with strong emotion. He rarely has daytime difficulty at work due to excessive sleepiness. He never feels paralyzed on waking or falling asleep. He never experiences vivid dreams upon waking or falling asleep. He never feels afraid of going to sleep. He rarely has nightmares. He occasionally recalls his dreams. He occasionally has thoughts racing through his mind. He rarely feels sad or depressed. He occasionally feels anxiety. He occasionally notices parts of his body jerk. He never kicks during the night. He occasionally feels crawling or aching feelings in his legs. He occasionally feels leg pain at night. He occasionally has morning jaw pain. Normal bedtime is 9:30 p.m., falling asleep within 15-30 minutes, waking between 0 and 1 time at night, staying awake for up to 3 minutes, just long enough for him to go to the bathroom and return to sleep. Wake time is 5:30 a.m.. He typically gets between 7 and 9 hours of sleep at night hours of sleep per night. on weekends, bedtime is later, 11:00 p.m. and his wake time is later, 7:00 a.m.. Habits:??Tobacco: Never smoker Alcohol: none Recreational substances: none PMFSH Past Medical History Medical History Abscess of perineum (~03/2023) Central sleep apnea Obesity, Class III, BMI 40-49.9 (morbid obesity) Obstructive sleep apnea Vitamin D deficiency Surgical History Surgical History History of incision and drainage (~03/2023) Perineal abscess 04/11/23 History of repair of pyloric stenosis (~03/1995) Family History Family History Grandparent Lung cancer Social History Social History Smoking status: Never smoker Alcohol intake: never Substance use: never Substance use type: does not use Do You Feel Safe in your Home?: Yes Lack of Transportation: No Lack of Food: Never True Current Housing: I Have Housing Concerned About Future Housing: No Difficulty Paying Gas/Electric Bills: No Difficulty Paying for Meds: No Currently Unemployed: No Education: High School Diploma/GED Difficulty w/ Childcare or Family Care: No Occupation/Education: occupation Spiritual care concerns: No Medications Home Medications Medication Instructions Recorded Confirmed Type cholecalciferol (vitamin D3) 1,250 1,250 mcg PO WEEKLY #12 tab
[2023-07-03 21:06] VITALS: BMI 42.9
== END 2023-06-08 07:00 | disposition home or self-care (01) ==
LOC: ANHCSM 08:47
PROVIDERS: PCP Family Medicine; Visit Provider Family Medicine
DX: G47.33 Obstructive sleep apnea (adult) (pediatric) (principal); G47.31 Primary central sleep apnea; Z68.41 Body mass index [BMI] 40.0-44.9, adult
CPT/HCPCS: 95811

== ENCOUNTER 2023-06-14 08:34 | Outpatient (CLI) | payer OTHER, SELFPAY ==
--- NOTE | 2023-06-14 08:43 | ECHO_ITS ---
Patient Info Name: Kenan Welch Age: 28 years : 1995 Gender: Male Ht: 70 in Wt: 299 lbs BSA: 2.65 m2 HR: 65 bpm BP: 104 / 70 mmHg Technical Quality: Fair Exam Date: 06/14/2023 8:53 AM Exam Location: Echo Lab Patient Status: Outpatient Admit Date: 06/14/2023 Staff Ordering Physician: Alice Martínez MD Occupational Therapy Teacher: Attending Provider: Alice Martínez MD Exam Type: CA echo doppler color flow Study Info Indications - sleep apnea Complete two-dimensional, color flow and Doppler transthoracic echocardiogram is performed. Summary 1. Complete two-dimensional, color flow and Doppler transthoracic echocardiogram is performed. 2. Left ventricular chamber dimension is normal. 3. Left ventricular systolic function is normal, estimated at 60-65%. 4. The left ventricular diastolic function is normal. 5. E/e' 6 is not elevated. 6. Left atrial chamber dimension is mildly enlarged. Left Ventricle E/e' 6 is not elevated. Left ventricular chamber dimension is normal. Left ventricular systolic function is normal, estimated at 60-65%. The left ventricular diastolic function is normal. Right Ventricle Right ventricular systolic function is normal and with normal TAPSE 2.5 cm. Right ventricular chamber dimension is normal. Left Atria Left atrial chamber dimension is mildly enlarged. Right Atria Right atrial chamber dimension is normal. Aortic Valve The aortic valve is trileaflet. There is no aortic valve stenosis. There is no aortic valve regurgitation. Pulmonic Valve There is no pulmonic regurgitation. Mitral Valve There is no mitral valve stenosis. There is no mitral valve regurgitation. Tricuspid Valve There is no tricuspid valve regurgitation. Pericardium/Pleural There is no pericardial effusion. Inferior Vena Cava Normal inferior vena cava with >50% collapse upon inspiration consistent with normal right atrial pressure, 5 mmHg. Aorta The aortic root size at the sinus of Valsalva is normal. Left Ventricular Outflow Tract Name Value Normal LVOT 2D LVOT Diameter 2.1 cm LVOT Doppler LVOT Peak Gradient 4 mmHg LVOT Mean Gradient 3 mmHg LVOT VTI 22 cm LVOT VTI/AV VTI Ratio 0.7 LVOT Stroke Volume 77 ml LVOT CO 5.5 l/min LVOT CI 2.1 l/min/m2 Pulmonic Valve Name Value Normal PV Doppler PV Peak Gradient 5 mmHg Mitral Valve Name Value Normal MV Doppler MV Decel [place] 684 cm/s2 MV PHT 45
== END 2023-06-14 08:35 | disposition home or self-care (01) ==
LOC: ANHCARD 08:36
PROVIDERS: PCP Family Medicine; Visit Provider Family Medicine
DX: G47.31 Primary central sleep apnea (principal); I51.7 Cardiomegaly; E66.01 Morbid (severe) obesity due to excess calories; Z68.41 Body mass index [BMI] 40.0-44.9, adult
CPT/HCPCS: 93306

== ENCOUNTER 2024-05-23 10:44 | Outpatient (CLI) | payer OTHER, SELFPAY ==
[2024-05-23 14:46] LABS: Alanine Aminotransferase 25 U/L (6-50); Albumin Level 4.4 g/dL (3.5-5.1); Alkaline Phosphatase 51 U/L (38-126); Anion Gap 8 mmol/L (4-12); Aspartate Amino Transferase 31 U/L (17-59); Bilirubin,Total 0.7 mg/dL (0.2-1.3); Blood Urea Nitrogen 17 mg/dL (9-20); Calcium 9.7 mg/dL (8.4-10.2); Carbon Dioxide 29 mmol/L (22-30); Chloride 102 mmol/L (98-107); Cholesterol 151 mg/dL (0-200); Estimated Glomerular Filt Rate > 60; Glucose 89 mg/dL (65-110); HDL Direct 43 mg/dL; Potassium 4.7 mmol/L (3.4-5.0); Sodium 139 mmol/L (137-145); Triglycerides 51 mg/dL (<150)
[2024-05-23 14:53] LABS: Basophils Percent Auto 0.5 % (0.2-1.2); Eosinophils Percent Auto 0.7 % (0-4.4); Hematocrit 47.7 % (42.0-52.0); Hemoglobin 15.8 g/dL (14.0-18.0); Immature Granulocyte Absolute 0.01 K/mm3 (0.00-0.031); Immature Granulocyte Percent A 0.2 % (0-0.5); Lymphocytes Percent Auto 36.9 % (18.3-44.2); Mean Corpuscular HGB Conc 33.1 g/dl (32-36); Mean Corpuscular Volume 84.4 fl (80-100); Mean Platelet Volume 12.9 fl (7.4-10.4); Monocytes Absolute Auto 0.4 K/mm3 (0.1-0.6); Monocytes Percent Auto 6.2 % (2.6-8.5); Neutrophils Absolute Auto 3.2 K/mm3 (1.3-6.7); Neutrophils Percent Auto 55.5 % (45.5-73.1); Platelet Count Result 202 k/mm3 (150-375); Red Blood Count 5.65 M/mm3 (4.6-6.20); Red Cell Distribution Width 14.3 % (11.5-14.5); White Blood Count 5.7 K/mm3 (4.5-10.0)
[2024-05-23 14:57] LABS: LDL Cholesterol Direct 94 mg/dL
[2024-05-23 15:57] LABS: Hemoglobin A1C 5.2 % (<5.7)
[2024-05-23 17:16] LABS: Vitamin D 25 Hydroxy 34.4 ng/mL
== END 2024-05-23 10:45 | disposition home or self-care (01) ==
LOC: ANHGOSHLAB 10:46
PROVIDERS: PCP Family Medicine; Visit Provider Family Medicine
DX: Z00.00 Encounter for general adult medical examination without abnormal findings (principal); E78.5 Hyperlipidemia, unspecified; R73.9 Hyperglycemia, unspecified; E55.9 Vitamin D deficiency, unspecified; E53.8 Deficiency of other specified B group vitamins; G47.33 Obstructive sleep apnea (adult) (pediatric); Z79.899 Other long term (current) drug therapy; Z13.29 Encounter for screening for other suspected endocrine disorder
CPT/HCPCS: 36415; 80053; 80061; 82306; 82607; 83036; 84443; 85025